=== PATIENT | male | born 1985 | race Caucasian/White ===

== ENCOUNTER → 2016-06-21 | Outpatient (CLI) | payer OTHER | LOC: LAB 17:40 | DX: K62.5 Hemorrhage of anus and rectum (principal) ==

== ENCOUNTER → 2016-07-03 | Day surgery (SDC) | payer OTHER | LOC: MSO 08:31 | DX: K92.1 Melena (principal); K21.9 Gastro-esophageal reflux disease without esophagitis; K64.8 Other hemorrhoids | CPT/HCPCS: 00810; J3010; J7120 ==